=== PATIENT | female | born 1990 | race Caucasian/White ===

== ENCOUNTER 2016-12-20 16:26 | Inpatient (IN) ==
--- NOTE | 2016-12-20 16:54 | OB/GYN History & Physical ---
History of Present Illness Chief complaint: In for elective induction of labor. History of present illness: Ms. Perry is a 26 year old female who presents to the labor department for elective induction of labor due to term . Her CANDELARIO is 12/28/2016 for an estimated gestational age of 39 weeks. The risk and benefits have been thoroughly discussed with this patient and significant other and plan care has been discussed with Dr. Avina in all parties are in agreement with plan. The patient began her care at the [facility] and she received routine care her course was uneventful. The patient has had 2 previous vaginal deliveries her largest weighed 7 pounds and 6 ounces and she reported no complications with that . labs: She is A+ , RPR is nonreactive, hepatitis B is negative, HIV is negative, rubella was immune, GBS cultures negative. Review of systems is negative with the exception of above. 12 point system: reviewed and no additional remarkable complaints except as stated Medical,Surgical,& Family Hx - Medical History Medical History: noncontributory - Surgical History Orthopedic Surgeries: Surgical HX of;: Orthopedic Surgery (L ankle surgery) - Family History Family History: Reports;: Family Diabetes (PGM), Family Hypertension (Mother) - Social History Smoking Status: Current every day smoker Have you smoked in the last 12 months: Yes Time spent discussing smoking cessation with patient: 3 to 10 minutes Marital Status: Lives With:: Spouse Functional capacity: independent ambulation 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 General appearance: no acute distress - Antepartum / Post Antpartum Exam Cervix -Dilatation: 2cm Effacement: 50% Station: -2 Rupture: intact Presentation: vtx Heart Rate: 140s Breast: bilateral: normal Abdomen obstetrics: Present: bowel sounds normal Vagina: Present: normal moisture Uterus exam: Present: enlarged Anus/Rectum: Present: normal perianal skin - Respiratory Respiratory exam: Present: clear to auscultation bilaterally - Cardiovascular Cardiovascular exam: Present: regular rate and rhythm - GI/Abdominal GI/Abdominal exam: Present: normal bowel sounds, soft - Extremities Exam Extremities exam: Present: normal inspection - Neurological Exam Neurological exam: Present: alert, oriented X3 - Psychiatric Psychiatric exam: Present: normal affect, normal mood - Skin Skin exam: Present: normal color, warm Assessment and Plan (1) Term Status: Acute Assessment and plan: Admit IV Fluids Prostin per protocol IV Pitocin if indicated Epidural if desired AROM when appropriate Anticipate Current Visit: Yes
[2016-12-20] MEDS ORDERED: ONDANSETRON 4 MG/2 ML VIAL IV PRN (16:56)
[2016-12-20] MEDS ORDERED: MEPERIDINE 50 MG/1 ML VIAL IM PRN (16:56)
[2016-12-20] MEDS ORDERED: DINOPROSTONE VAG GEL 10 MG SYRINGE VAG ONE ×2 (16:57→16:58)
[2016-12-20] MEDS ORDERED: OXYTOCIN/LR 20 UNIT/1,000 ML BAG IV SCH (17:00)
[2016-12-20] MEDS: LACTATED RINGERS 1,000 ML IV SCH ×2 (17:23→23:58)
[2016-12-20 17:25] LABS: Basophils % 0.1 % (0.0-0.8); Eosinophils # 0.1 10*3/uL (0.0-0.87); Hematocrit 30.5 VOL% (35.7-47.0); Hemoglobin 10.1 GM/DL (12.0-16.0); Immature Granulocytes % 1.6 %; Immature Granulocytes Absolute 0.22 #; Lymphocytes % 14.8 % (21.3-54.2); Mean Corpuscular HGB Conc 33.1 GM/DL (32-36); Mean Corpuscular Hemoglobin 30 PG (27-34); Mean Corpuscular Volume 89.2 FL (87-102); Mean Platelet Volume 9.4 FL (9.6-12.0); Monocytes # 1.3 10*3/uL (0.11-0.8); Monocytes % 9.8 % (1.7-12.7); Neutrophils # 9.9 10*3/uL (1.4-7.4); Neutrophils % 72.7 % (38.7-73.9); Platelet Count 311 T/CUMM (130-400); Red Blood Count 3.42 MC/CUMM (3.8-5.5); White Blood Count 13.6 T/CUMM (4-12)
[2016-12-20 18:00] LABS: Alanine Aminotransferase 18 U/L (13-56); Albumin 2.5 G/DL (3.4-5.0); Alkaline Phosphatase 123 U/L (45-117); Aspartate Amino Transferase 27 U/L (0-37); Bilirubin,Total < 0.39 MG/DL (0.2-1.0); Blood Urea Nitrogen 3 MG/DL (7-18); Calcium 8.3 MG/DL (8.5-10.1); Glucose 77 MG/DL (74-106); Potassium 3.1 MMOL/L (3.5-5.1); Sodium 143 MMOL/L (136-145); Total Protein 6.4 G/DL (6.4-8.3); Uric Acid 5.3 MG/DL (2.6-6.0)
[2016-12-20] MEDS ORDERED: CITRIC ACID/SODIUM CITRATE 30 ML UDCUP PO ONE (19:07)
[2016-12-20] MEDS ORDERED: FAMOTIDINE 20 MG/2 ML VIAL IV ONE (19:07)
[2016-12-20] MEDS ORDERED: ePHEDrine 50 MG/ML AMP IV PRN (19:07)
[2016-12-20] MEDS ORDERED: LACTATED RINGERS 1,000 ML IV ONE (19:07)
[2016-12-20] MEDS ORDERED: diphenhydrAMINE 50 MG/1 ML VIAL IV PRN ×2 (19:12)
[2016-12-20] MEDS ORDERED: PROMETHAZINE 25 MG/1 ML VIAL IM ONE (19:12)
[2016-12-20] MEDS ORDERED: fentaNYL 2 MCG/ROPIV 0.2% EPID 150 ML EPIDURAL SCH (19:12)
[2016-12-20] MEDS ORDERED: hydrOXYzine HCL 25 MG/1 ML VIAL IM PRN (19:12)
[2016-12-20 22:39] LABS: INR 0.9; PT Patient Result 9.5 SECS; Partial Thromboplastin Time 26.8 SECS (0-40)
[2016-12-20] MEDS ORDERED: MEPERIDINE 50 MG/1 ML VIAL IV PRN (23:51)
[2016-12-21] MEDS ORDERED: OXYTOCIN/LR 20 UNIT/1,000 ML BAG IV SCH ×2 (02:00→03:00)
[2016-12-21] MEDS ORDERED: CITRIC ACID/SODIUM CITRATE 30 ML UDCUP PO ONE (02:05)
[2016-12-21] MEDS ORDERED: FAMOTIDINE 20 MG/2 ML VIAL IV ONE (02:05)
[2016-12-21] MEDS ORDERED: LACTATED RINGERS 250 ML IV PRN (02:06)
[2016-12-21] MEDS ORDERED: fentaNYL 2 MCG/ROPIV 0.2% EPID 150 ML EPIDURAL SCH (02:06)
[2016-12-21] MEDS ORDERED: ePHEDrine 50 MG/ML AMP IV PRN (02:06)
[2016-12-21 04:11] LABS: Apearance,Urine CLEAR (Clear); Bilirubin,Urine Negative (Negative); Blood, Urine Negative (Negative); Glucose,Urine (UA) Negative (Negative); Ketones,Urine Negative (Negative); Mucus,Urine Occasional /LPF (Occasional); Nitrite,Urine Negative (Negative); Protein,Urine 30 MG/DL; RBC,Urine 1 /HPF (0-4); Squamous Epithelial Cell,Urine Occasional /HPF (0-10); Urine Color Yellow (Yellow); Urine Specific Gravity 1.013 (1.001-1.035); Urine Urobilinogen < 2.0 EU/DL (0.2-1.0); WBC,Urine 3 /HPF (0-6)
[2016-12-21] MEDS: LACTATED RINGERS 1,000 ML IV SCH (05:22)
--- NOTE | 2016-12-21 09:22 | Event Note ---
837: AROM with clear fluid noted. VE = 6-7 cm/ 80%/ -1 station. Patient is comfortable with an epidural.
[2016-12-21] MEDS ORDERED: LIDOCAINE 1% 50 ML VIAL ONE (09:52)
[2016-12-21] MEDS ORDERED: METHYLERGONOVINE 0.2 MG/1 ML AMP ONE (09:53)
[2016-12-21] MEDS ORDERED: miSOPROStol 200 MCG TABLET ONE (10:22)
--- NOTE | 2016-12-21 10:46 | Event Note ---
HPI: Ms. Perry is a 26-year-old female who presented to the labor department for elective induction of labor due to term . The risks and benefits were thoroughly discussed with this patient, plan of care was also discussed with Dr. Avina in all parties were in agreement with plan. Stage I: The patient was admitted she received IV fluids and IV Pitocin per protocol she progressed in labor with a CAT 1 tracing. Artificial rupture membranes was performed with clear fluid noted. The patient did receive an epidural for pain control. She had an uneventful course of labor. Stage II: The patient was complete and complaining of pressure and desired to push. The patient pushed for approximately 20 minutes after which time the infant's head was delivered. A nuchal cord 1 was noted and reduced. The mouth and nose was suctioned out on the perineum, the remainder of the infant was delivered at 1033. A viable male was noted. The was placed on the mom's abdomen for skin to skin Byman. Apgars were 8 at 1 minute and 9 at 5 minutes. weight was 8 pounds and 6 oz. A cord pH was obtained and sent to the lab. Stage III: A spontaneous delivery of a Munoz placenta with a three-vessel cord noted. The placenta was further examined. Be grossly intact. The vagina and cervix was inspected with the first-degree perineal laceration noted which was repaired. Epidural anesthesia remaining in effect during repair. Estimated blood loss was approximately 150 mL. At the time of dictation mother and baby are both in stable condition.
[2016-12-21] MEDS ORDERED: WITCH HAZEL PADS 100/JAR TOP PRN (10:47)
[2016-12-21] MEDS ORDERED: MEASLES/MUMPS/RUBELLA VACCINE 0.5 ML VIAL SUBCUT ONE (10:47)
[2016-12-21] MEDS ORDERED: HYDROCORTISONE 2.5% RECTAL CREAM 30 GM TUBE TOP PRN (10:47)
[2016-12-21] MEDS ORDERED: LANOLIN 50% CREAM 0.3 OZ TUBE TOP PRN (10:47)
[2016-12-21] MEDS ORDERED: BISACODYL 10 MG SUPP RECTAL PRN (10:47)
[2016-12-21] MEDS ORDERED: BENZOCAINE 20%/MENTHOL 0.5% SPRAY 56 GM CAN TOP PRN (10:47)
[2016-12-21] MEDS ORDERED: ACETAMINOPHEN 325 MG TABLET PO PRN (10:47)
[2016-12-21] MEDS ORDERED: RHO(D) IMMUNE GLOBULIN 300 MCG SYRINGE IM ONE (10:47)
[2016-12-21] MEDS ORDERED: oxyCODONE/ACETAMINOPHEN 5-325 MG TABLET PO PRN (10:47)
[2016-12-21] MEDS ORDERED: OXYTOCIN/LR 20 UNIT/1,000 ML BAG IV ONE (10:47)
[2016-12-21] MEDS ORDERED: DIPH/TET/ACEL PERT BOOSTER VACCINE 0.5 ML VIAL IM ONE (10:47)
[2016-12-21] MEDS ORDERED: ACETAMINOPHEN/CODEINE 300-30 MG TABLET PO PRN (10:49)
[2016-12-21] MEDS: IBUPROFEN 800 MG TABLET PO PRN ×2 (14:37→20:52)
[2016-12-21] MEDS: oxyCODONE/ACETAMINOPHEN 5-325 MG TABLET PO PRN ×2 (14:38→20:51)
[2016-12-21] MEDS: DOCUSATE SODIUM 100 MG CAPSULE PO SCH (20:51)
[2016-12-22 06:19] LABS: Mean Corpuscular HGB Conc 33.3 GM/DL (32-36); Mean Corpuscular Hemoglobin 29 PG (27-34); Mean Corpuscular Volume 87.7 FL (87-102); Mean Platelet Volume 9.7 FL (9.6-12.0); Neutrophils % 67.5 % (38.7-73.9); Platelet Count 262 T/CUMM (130-400); Red Blood Count 3.08 MC/CUMM (3.8-5.5); Red Cell Distribution Width 14.1 % (9.3-17.3); White Blood Count 11.1 T/CUMM (4-12)
[2016-12-22 06:20] LABS: Basophils % 0.2 % (0.0-0.8); Eosinophils # 0.2 10*3/uL (0.0-0.87); Eosinophils % 2.1 % (0.00-10.9); Immature Granulocytes % 1.2 %; Immature Granulocytes Absolute 0.13 #; Lymphocytes # 2.1 10*3/uL (1.4-4.0); Monocytes # 1.1 10*3/uL (0.11-0.8); Neutrophils # 7.5 10*3/uL (1.4-7.4)
[2016-12-22] MEDS: DOCUSATE SODIUM 100 MG CAPSULE PO SCH ×2 (08:45→21:30)
[2016-12-22] MEDS: IBUPROFEN 800 MG TABLET PO PRN (08:45)
--- NOTE | 2016-12-22 10:04 | OB/GYN Progress Note ---
Assessment and Plan (1) Term Status: Acute Assessment and plan: Admit IV Fluids Prostin per protocol IV Pitocin if indicated Epidural if desired AROM when appropriate Anticipate Current Visit: Yes (2) Vaginal delivery Status: Acute Assessment and plan: Initiate routine orders. 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 Bonding well with . Exam FINANCIAL AID OFFICER - Constitutional Vitals: Vital Signs Temp Pulse Resp BP Pulse Ox 12/22/16 07:09 97.4 F L 81 18 96/51 100 12/22/16 05:46 18 12/22/16 04:00 97.4 F L 86 16 129/75 99 12/22/16 02:00 18 12/22/16 00:00 97.5 F L 86 20 123/73 99 12/21/16 15:20 97.3 F L 81 20 137/83 98 12/21/16 14:20 94 H 20 138/71 98 12/21/16 13:20 98 H 20 121/74 100 12/21/16 12:50 91 H 20 123/69 100 12/21/16 12:20 98.3 F 88 20 128/70 98 General appearance: no acute distress - Antepartum / Post Post Exam Breast: bilateral: normal Abdomen obstetrics: Present: bowel sounds normal Vagina: Present: normal moisture (light lochia rubra), discharge Uterus exam: Present: enlarged (FF ML) Anus/Rectum: Present: normal perianal skin - Head Head exam: Present: normal inspection - Respiratory Respiratory exam: Present: clear to auscultation bilaterally - Cardiovascular Cardiovascular exam: Present: regular rate and rhythm - GI/Abdominal GI/Abdominal exam: Present: normal bowel sounds, soft - Extremities Exam Extremities exam: Present: normal inspection - Back Exam Back exam: Present: normal inspection - Neurological Exam Neurological exam: Present: alert, oriented X3 - Psychiatric Psychiatric exam: Present: normal affect, normal mood - Skin Skin exam: Present: normal color, warm Results - Labs CBC & BMP: 12/22/16 05:40 12/20/16 17:10
[2016-12-22] MEDS: oxyCODONE/ACETAMINOPHEN 5-325 MG TABLET PO PRN ×2 (10:14→18:49)
[2016-12-22] MEDS: FERROUS SULFATE 325 MG TABLET PO SCH ×2 (10:15→21:30)
[2016-12-23] MEDS: oxyCODONE/ACETAMINOPHEN 5-325 MG TABLET PO PRN (07:40)
--- NOTE | 2016-12-23 10:00 | Discharge Summary ---
Hospital Course - Hospital Course Hospital Course: Ms. Perry is a 26-year-old female who presented for induction of labor. She subsequently delivered a viable with no complications. She has follow normal 2 day course she has done well. Her bleeding is minimal no odor. Her perineum is intact with no edema. Her vital signs lab is stable. Her bleeding is minimal. No odor. She is voiding without difficulty. She is bonding well with her infant. She will be discharged to home with prescription for pain and follow-up appointment in our office. Diagnosis - Discharge Diagnosis (1) Term Status: Acute (2) Vaginal delivery Status: Acute Specialty Discharge - Follow Up or Referrals Follow up with: Jessa Avina MD [Physician] - (follow up in 6 weeks) Discharge Plan - Discharge Data Disposition: Disch To Home/Self Care Condition at Discharge: Stable Discharge Diet: advance to your usual diet, regular diet Activity: resume usual activities as tolerated Weight Bearing at Discharge: weight bear as tolerated Driving: no restrictions Contact your physician if you experience:: fever over 101, pain uncontrolled by pain medications - Discharge Medications New Acetamin/Codeine 300-30 Tab [Tylenol/Codeine #3] 2 tablet PO Q4H PRN #30 tablet PRN Reason: Pain Mild (1-3) Ibuprofen Tab [Motrin Tab] 800 mg PO Q6H PRN #30 tablet PRN Reason: Pain Moderate (4-7) Ferrous Sulfate Tab [Feosol Original Tab] 325 mg PO BID #60 tablet No Action Multivitamin () [ Vitamin] 1 tablet PO DAILY Ferrous Sulfate, Dried [Iron] 160 mg PO DAILY - Follow Up or Referral - Forms/Instructions Exam - Constitutional Vitals: Period Temp Pulse Resp BP Sys/Hart Pulse Ox Last 24 Hr 97.5 F-98.0 F 85-97 18-20 120-148/71-91 94-100 General appearance: no acute distress - Head Head exam: Present: normal inspection - ENT ENT exam: Present: normal exam - Respiratory Respiratory exam: Present: clear to auscultation bilaterally - Cardiovascular Cardiovascular exam: Present: regular rate and rhythm - GI/Abdominal GI/Abdominal exam: Present: normal bowel sounds, soft - Extremities Exam Extremities exam: Present: normal inspection - Neurological Exam Neurological exam: Present: alert, oriented X3 - Psychiatric Psychiatric exam: Present: normal affect, normal mood - Skin Skin exam: Present: normal color, warm DS: Provider Date of admission: 12/20/16 16:45 Attending physician on admission: Jessa Avina MD Consults: 12/20/16 16:56 Consult to Anesthesiology [CONS] Routine Consulting Provider: Reason for Anesthesiology: Epidural Consult Comment: Epidural for pain managment 12/21/16 10:47 Consult to Trimming Press Operator [CONS] Routine Consult Trimming Press Operator: Breast Feeding Discharging clinician: Diana Alvarenga CNM Expected date of discharge: 12/23/16
[2016-12-23] MEDS: FERROUS SULFATE 325 MG TABLET PO SCH (10:30)
[2016-12-23] MEDS: DOCUSATE SODIUM 100 MG CAPSULE PO SCH (10:30)
[2016-12-23] MEDS ORDERED: DIPH/TET/ACEL PERT BOOSTER VACCINE 0.5 ML VIAL IM ONE (11:20)
[2016-12-29 10:33] VITALS: BP 130/81
== END 2016-12-23 13:10 | disposition home or self-care (01) | DRG 775 ==
LOC: N.LDOUT 16:26 → N.LD 16:32 → N.OB 12-21 12:20
PROVIDERS: ADMIT Obstetrics & Gynecology; ATTEND Obstetrics & Gynecology

== ENCOUNTER 2017-04-07 18:04 | Inpatient (IN) ==
[2017-04-07] MEDS ORDERED: SODIUM CHLORIDE 0.9% 1,000 ML IV STA (19:08)
[2017-04-07] MEDS ORDERED: LEVOFLOXACIN INJ 750 MG in PREMIX 1 EACH IV STA (19:08)
[2017-04-07] MEDS ORDERED: LEVOFLOXACIN INJ 150 ML IV ONE (19:15)
--- NOTE | 2017-04-07 19:38 | Emergency Department Note ---
Hardeep Greenwood Brittany, am scribing for, and in the presence of, Castillo Coker MD 19:14. John Paul Greenwood Robert M, MD, personally performed the services described in this documentation, ascribed by Zee Meier in my presence, and it is both accurate and complete 938 . Arrival - Arrival Chief Complaint: Upper Respiratory Stated Complaint: neshba sent pt over ED Nursing Triage Note: Sore throat onset on Tuesday - pt states that she was seen and treated on at Urgent Care and was given clindamycin - pt went back to urgent care today and was sent to [facility] ER and then to ER here for futher evaluation - pt states that she is having difficulty with swallowing Mode of Arrival: Ambulatory Limitations: No Limitations Source: Patient, RN Notes Reviewed Time Seen by Provider: 04/07/17 19:05 - History of Present Illness HPI Narrative: Patient is a 26 y/o white female presenting to the ED from [facility] for further evaluation of Peritonsillar Abscess. Patient reports that she was seen at an Urgent Care Clinic on Tuesday, was diagnosed with Strep Throat and was given Clindamycin. Patient states that symptoms have not gotten better and she is now having difficulty with swallowing. She since onset of this new symptom presented back to Urgent Care and was then transferred to [facility] where she was found to have a Peritonsillar Abscess with which she was then transferred here to [facility] for further evaluation. Patient notes that along with onset of difficulty swallowing, she's also felt some jaw tightness and has had some yellow sputum. She has ran a fever today. Patient denies any pain with opening her mouth, bloody sputum, dyspnea, abdominal pain, nausea, or vomiting. She notes difficulty swallowing her spit. Patient has no other complaint/pain. Onset (ago): day(s) (4) Consistency: constant Date of Last Menstrual Period: 2 weeks Allergies/Adverse Reactions: Allergies Allergy/AdvReac Type Severity Reaction Status Date / Time Penicillins Allergy Intermediate RASH Verified 12/20/16 16:56 sulfamethoxazole Allergy Intermediate RASH Verified 12/20/16 16:56 [From Bactrim] trimethoprim [From Bactrim] Allergy Intermediate RASH Verified 12/20/16 16:56 azithromycin [From Zithromax] Allergy RASH Verified 04/07/17 18:11 Review of System - Review of System 12 point system: reviewed and no additional remarkable complaints except as stated - Review of System Constitutional: Present: fever. Absent: chills Eyes: Absent: vision change Head/Ears/Nose/Throat: Present: sore throat. Absent: nasal drainage Respiratory: Absent: cough, respiratory distress Cardiovascular: Absent: chest pain Gastrointestinal: Absent: abdominal pain, nausea, vomiting, diarrhea, constipation Genitourinary female: Absent: dysuria, frequency, urgency Musculoskeletal: Absent: arm pain, back pain, leg pain, neck pain Skin: Absent: rash Neurological: Absent: headache Psychiatric: Absent: anxiety, depression Medical,Surgical,& Family Hx - Medical History Neurology: No history of: Peripheral Neuropathy Reproductive: No history of: Ectopic , Complication - Surgical History Reproductive Surgeries: Patient denies;: Section Orthopedic Surgeries: Surgical HX of;: Orthopedic Surgery (L ankle surgery) - Family History Family History: Reports;: Family Diabetes (PGM), Family Hypertension (Mother PGM FATHER) Denies;: Family Anesthesia Reaction Comment Only: Family Cancer (PGM) - Social History Smoking Status: Current every day smoker Frequency of Alcohol Use: None Type of Drug Use: None Exam Vital Signs: Vital Signs Temperature 98.1 F 04/07/17 18:11 Pulse Rate 120 H 04/07/17 18:11 Respiratory Rate 20 04/07/17 18:11 Blood Pressure 134/86 04/07/17 18:11 O2 Sat by Pulse Oximetry 100 04/07/17 18:11 - General General appearance: alert, in no apparent distress - Head Head exam: Present: atraumatic, normocephalic, normal inspection - Eye Eye exam: Present: normal appearance, PERRL, EOMI - ENT ENT exam: Present: mucous membranes moist. Absent: normal oropharynx (swollen left tonsillar pillar, exudates noted bilaterally, pitting of the left palatine tonsil) - Neck Neck exam: Present: normal inspection, full ROM, trachea midline - Chest Chest inspection: Present: normal inspection, symmetric chest wall rise - Respiratory Respiratory exam: Present: normal lung sounds bilaterally. Absent: rales, rhonchi, wheezes - Cardiovascular Cardiovascular exam: Present: regular rate, normal rhythm, normal heart sounds. Absent: murmur, rubs, gallop - Abdominal Exam Abdominal exam: Present: soft, normal bowel sounds. Absent: distention, tenderness - Extremities Exam Extremities exam: Present: normal inspection - Back Exam Back exam: Present: normal inspection - Neurological Exam Neurological exam: Present: alert, oriented X3, CN II-XII intact. Absent: motor sensory deficit - Psychiatric Psychiatric exam: Present: normal affect, normal mood - Skin Skin exam: Present: warm, dry Course - Consultations Consultation #1: Dr. Christopher echeverria will admit the patient. He recommends IV antibiotics and Decadron 8 mg IV every 8 hours. Time: 20:23 Results - Labs CBC & BMP: 04/07/17 19:16 04/07/17 19:16 Lab Results: I have reviewed the patients labs - Diagnostic Findings Procedure: CT: report reviewed by me, image reviewed by me (Questionable left peritonsillar abscess versus cellulitis) Disposition Clinical Impression: Left peritonsillar abscess/cellulitis Case discussed with: patient, patient's family Disposition: Still a Patient Condition: Stable Time of Disposition: 20:24
[2017-04-07 19:49] LABS: Basophils # 0.1 10*3/uL (0.0-0.2); Basophils % 0.3 % (0.0-0.8); Eosinophils # 0.2 10*3/uL (0.0-0.87); Eosinophils % 1.4 % (0.00-10.9); Hemoglobin 13.6 GM/DL (12.0-16.0); Immature Granulocytes % 0.5 %; Immature Granulocytes Absolute 0.08 #; Lymphocytes # 3.1 10*3/uL (1.4-4.0); Lymphocytes % 19.3 % (21.3-54.2); Mean Corpuscular Hemoglobin 29 PG (27-34); Mean Corpuscular Volume 84.2 FL (87-102); Mean Platelet Volume 8.9 FL (9.6-12.0); Monocytes # 1.2 10*3/uL (0.11-0.8); Monocytes % 7.7 % (1.7-12.7); Neutrophils # 11.3 10*3/uL (1.4-7.4); Neutrophils % 70.8 % (38.7-73.9); Platelet Count 370 T/CUMM (130-400); Red Blood Count 4.75 MC/CUMM (3.8-5.5); Red Cell Distribution Width 14.1 % (9.3-17.3)
[2017-04-07] MEDS ORDERED: KETOROLAC 30 MG/1 ML VIAL IV STA (19:55)
--- NOTE | 2017-04-07 19:56 | CT Report ---
Exam: CT soft tissue neck w con Date: 04/07/2017 7:06 PM Comparison: None Indication: Left throat pain and swelling, prior history of previous tonsillectomy Total DLP: 336.1 mGy*cm Technical: Axial sagittal and coronal images were obtained through the soft tissue neck with 80 cc of contrast Omnipaque 350 administered. Dose reduction was performed with decreasing kv and mA and automated exposure Findings: The lower brainstem and cerebellum are unremarkable. The paranasal sinuses as imaged are intact. Mastoids are unremarkable. There is no prevertebral soft tissue abnormality. The torus tubarius and fossa of Rosenmuller unremarkable. The uvula is intact. The epiglottis is unremarkable. The submandibular glands and parotid glands are unremarkable. No significant adenopathy within the anterior posterior carotid triangle regions small shotty nodes are present bilaterally. The trachea is slightly deviated to the right. The thyroid gland is unremarkable. Small nodes adjacent to the submandibular glands left slightly larger than right. Degenerative changes minimally present along the cervical spine. The jugular venous system and carotid and subclavian veins are otherwise unremarkable. The vertebral arteries are patent. Impression: 1. Small shoddy nodes present bilaterally without obvious mass. There is no obvious evidence of cellulitis or abscess or mass present PROCEDURE INTERPRETED AT [facility] DEPARTMENT OF RADIOLOGY Final Report Signed by: Dr. Khang Pennington
[2017-04-07] MEDS ORDERED: KETOROLAC 30 MG/1 ML VIAL ONE (19:57)
[2017-04-07 20:06] LABS: Calcium 9.4 MG/DL (8.5-10.1); Magnesium 2.3 MG/DL (1.8-2.4); Osmolality,Calculated 277.4 MOS/KG (273-304)
[2017-04-07] MEDS ORDERED: IBUPROFEN 600 MG TABLET PO PRN (20:24)
[2017-04-07] MEDS ORDERED: diphenhydrAMINE 50 MG/1 ML VIAL IV PRN (20:24)
[2017-04-07] MEDS ORDERED: ONDANSETRON 4 MG/2 ML VIAL IV PRN (20:24)
[2017-04-07] MEDS ORDERED: ACETAMINOPHEN 500 MG TABLET PO PRN (20:24)
[2017-04-07] MEDS: DEXAMETHASONE 4 MG/1 ML VIAL IV SCH (21:42)
[2017-04-07] MEDS: LACTATED RINGERS 1,000 ML IV SCH (21:42)
[2017-04-07] MEDS: CLINDAMYCIN INJ 600 MG in PREMIX 1 EACH IV SCH (21:42)
[2017-04-08] MEDS: CLINDAMYCIN INJ 600 MG in PREMIX 1 EACH IV SCH (03:44)
[2017-04-08] MEDS: LACTATED RINGERS 1,000 ML IV SCH ×2 (03:49→05:32)
[2017-04-08] MEDS: DEXAMETHASONE 4 MG/1 ML VIAL IV SCH (05:29)
[2017-04-08 11:36] VITALS: BP 137/70
--- NOTE | 2017-04-08 14:58 | History & Physical Report ---
Assessment and Plan - Time spent with patient Time spent with patient: Less than 30 minutes (1) Peritonsillar abscess Status: Acute Assessment and plan: Peritonsillar abscess seems to resolved itself with the auto draining fistula I recommend the patient continue her current therapy she states she feels much better she has gotten 24 hours of IV Clinda and Decadron. She will be discharged home in follow-up in 2 weeks or as needed. (2) Sore throat Status: Acute (3) Tonsillitis Status: Acute History of Present Illness Chief complaint: Left peritonsillar abscess History of present illness: Ms. Perry is a 26 year old female with a sore throat previously diagnosed as strep and on clindamycin with continued worsening of the pain from a constant 5 out of 10 to a constant 8 out of 10 with exacerbations to a 10 out of 10 per the patient the exacerbations are considered sharp with a baseline dull pain. The clindamycin has not helped the pain any and the patient was seen in the ER and a CT was done revealing a very small left peritonsillar abscess. ENT was consulted and ultimately admitted the patient for overnight IV Clinda with Decadron. Home Medications Medication Instructions Recorded Confirmed Type No Known Home Medications [No 04/07/17 04/07/17 History Known Home Medications] Allergies Allergy/AdvReac Type Severity Reaction Status Date / Time Penicillins Allergy Intermediate RASH Verified 12/20/16 16:56 sulfamethoxazole Allergy Intermediate RASH Verified 12/20/16 16:56 [From Bactrim] trimethoprim [From Bactrim] Allergy Intermediate RASH Verified 12/20/16 16:56 azithromycin [From Zithromax] Allergy RASH Verified 04/07/17 18:11 12 point system: reviewed and no additional remarkable complaints except as stated Medical,Surgical,& Family Hx - Medical History Neurology: No history of: Peripheral Neuropathy HEENT: History of: Dental Problems (wisdom teeth extracted) Reproductive: No history of: Ectopic , Complication - Surgical History HEENT Surgeries: Surgical HX of: Tonsilectomy & Adenoidectomy Reproductive Surgeries: Patient denies;: Section Orthopedic Surgeries: Surgical HX of;: Orthopedic Surgery (L ankle surgery) - Family History Family History: Reports;: Family Diabetes (PGM), Family Hypertension (Mother PGM FATHER) Denies;: Family Anesthesia Reaction Comment Only: Family Cancer (PGM) - Social History Smoking Status: Current every day smoker Frequency of Alcohol Use: None Type of Drug Use: None Exam - Constitutional Vitals: Period Temp Pulse Resp BP Sys/Hart Pulse Ox Last 24 Hr 96.7 F-98.1 F 69-120 18-20 100-137/49-86 94-100 General appearance: normal weight, no acute distress - Head Head exam: Present: normal inspection, normocephalic - Eye Eye exam: Present: EOMI Pupils: Present: HEIKE - ENT ENT exam: Present: normal exam, normal external ear exam - Expanded ENT Exam Ear exam: Present: TM's normal bilaterally Mouth exam: Present: normal external inspection Throat exam: Present: L peritonsillar mass (With auto draining left superior pole fistula the patient notes shortly after admit that she felt it burst and a copious amount of green purulence discharge. Palpation at bedside reveals no fluctuance or evidence of any additional abscess.), tonsillar exudate - Neck Neck exam: Present: normal inspection - Respiratory Respiratory exam: Present: clear to auscultation bilaterally - Cardiovascular Cardiovascular exam: Present: regular rate and rhythm - GI/Abdominal GI/Abdominal exam: Present: soft (No gross organomegaly) - Extremities Exam Extremities exam: Present: normal inspection - Back Exam Back exam: Present: normal inspection - Neurological Exam Neurological exam: Present: alert, oriented X3, CN II-XII intact - Psychiatric Psychiatric exam: Present: normal affect, normal mood - Skin Skin exam: Present: normal color, warm Results - Labs CBC & BMP: 04/07/17 19:16 04/07/17 19:16
--- NOTE | 2017-04-08 15:04 | Discharge Summary ---
Hospital Course - Hospital Course Hospital Course: Admitted with left peritonsillar abscess that subsequently auto drained with an open auto draining fistula seen on exam resolution of the patient's pain and improvement of overall condition she is discharged to home to continue her current treatment and follow-up as needed - Time spent with patient Time with patient DS: Less than 30 minutes Diagnosis - Discharge Diagnosis (1) Peritonsillar abscess Status: Resolved (2) Sore throat Status: Acute (3) Tonsillitis Status: Acute Specialty Discharge - Follow Up or Referrals Follow up with: Christopher Rae DO [Physician] - 2 Weeks Discharge Plan - Discharge Data Condition at Discharge: Stable Discharge Diet: advance to your usual diet - Discharge Medications No Action No Known Home Medications [No Known Home Medications] - Follow Up or Referral - Forms/Instructions Instructions: Peritonsillar Abscess (DC) Exam - Constitutional Vitals: Period Temp Pulse Resp BP Sys/Hart Pulse Ox Last 24 Hr 96.7 F-98.1 F 69-120 18-20 100-137/49-86 94-100 General appearance: normal weight, no acute distress - Head Head exam: Present: normal inspection, normocephalic - Eye Eye exam: Present: EOMI Pupils: Present: HEIKE - ENT ENT exam: Present: normal exam, normal external ear exam - Expanded ENT Exam Mouth exam: Present: moist Throat exam: Present: L peritonsillar mass (Left outer draining fistula no evidence of fluctuance or continued abscess) - Neck Neck exam: Present: normal inspection - Respiratory Respiratory exam: Present: clear to auscultation bilaterally - Cardiovascular Cardiovascular exam: Present: regular rate and rhythm - GI/Abdominal GI/Abdominal exam: Present: normal bowel sounds - Extremities Exam Extremities exam: Present: normal inspection - Back Exam Back exam: Present: normal inspection - Neurological Exam Neurological exam: Present: alert, oriented X3, CN II-XII intact - Psychiatric Psychiatric exam: Present: normal affect, normal mood - Skin Skin exam: Present: normal color, warm Discharge Results Procedures and tests throughout hospitalization: Pending Orders 04/07/17 19:40 Blood Culture Stat Labs on day of discharge: Labs from last 24 hours 04/07/17 04/07/17 19:16 19:16 WBC 16.0 H RBC 4.75 Hgb 13.6 Hct 40.0 MCV 84.2 L MCH 29 MCHC 34.0 RDW 14.1 Plt Count 370 MPV 8.9 L Neut % (Auto) 70.8 Lymph % (Auto) 19.3 L [place] % (Auto) 7.7 Eos % (Auto) 1.4 Baso % (Auto) 0.3 Neut # (Auto) 11.3 H Lymph # (Auto) 3.1 [place] # (Auto) 1.2 H Eos # (Auto) 0.2 Baso # (Auto) 0.1 Immature Gran % 0.5 Nucleated RBC % 0.0 Immature Gran # 0.08 Nucleated RBCs # 0.00 Sodium 140 Potassium 4.0 Chloride 107 Carbon Dioxide 25 Anion Gap 12.0 BUN 13 Creatinine 0.60 GFR Calculation 137 BUN/Creatinine Ratio 21.00 H Glucose 86 Calculated Osmolality 277.4 Calcium 9.4 Magnesium 2.3 DS: Provider Date of admission: 04/07/17 20:24 Primary care physician: . No PCP Attending physician on admission: Christopher Rae DO Discharging clinician: Christopher Rae DO Expected date of discharge: 04/08/17
== END 2017-04-08 12:21 | disposition home or self-care (01) | DRG 153 ==
LOC: N.ED 18:04 → N.EDINP 20:24 → N.5E 20:49
PROVIDERS: ADMIT Otolaryngology; ATTEND Otolaryngology